=== PATIENT | male | born 1975 | race African-American/Black ===

== ENCOUNTER 2019-01-02 18:27 | Emergency (ER) | payer OTHER, MEDICARE ==
[~2019-01-02] VITALS: Ht 172.7 cm; Wt 84.8 kg
[2019-01-02 18:39] VITALS: BP 138/92
[2019-01-02] MEDS ORDERED: DIPHTH,PERTUSS(ACELL),TET TOX 0.5 ML DISP.SYRIN. VAX IM ONE (19:00)
--- NOTE | 2019-01-02 19:04 | PHYS DOC ---
Past History Past Medical History: Other Past Surgical History: Knee Replacement, Other Alcohol Use: None Drug Use: Marijuana Adult General Chief Complaint Chief Complaint: LACERATION/AVULSION [facility] HPI 43-year-old male presents with right third digit laceration. 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 He was cutting a bagel when the knife slipped and lacerated the posterior part of his third digit over the middle phalanx patient had immediate bleeding. He applied direct pressure and realize it likely needed stitches. He denies any other injuries. His tetanus is out of date. Review of Systems Review of Systems Constitutional: Denies fever or chills [] Eyes: Denies change in visual acuity, redness, or eye pain [] HENT: Denies nasal congestion or sore throat [] Respiratory: Denies cough or shortness of breath [] Cardiovascular: No additional information not addressed in HPI [] GI: Denies abdominal pain, nausea, vomiting, bloody stools or diarrhea [] : Denies dysuria or hematuria [] Musculoskeletal: Denies back pain or joint pain [] Integument: Laceration[] Neurologic: Denies headache, focal weakness or sensory changes [] Endocrine: Denies polyuria or polydipsia [] All other systems were reviewed and found to be within normal limits, except as documented in this note. Allergies Allergies Allergies Coded Allergies Type Severity Reaction Last Updated Verified Iodinated Contrast- Oral and IV Dye Allergy Unknown 01/02/19 Yes iodine Allergy Unknown 01/02/19 Yes Physical Exam Physical Exam Constitutional: Well developed, well nourished, no acute distress, non-toxic appearance. [] HENT: Normocephalic, atraumatic, bilateral external ears normal, oropharynx moist, no oral exudates, nose normal. [] Eyes: PERRLA, EOMI, conjunctiva normal, no discharge. [] Neck: Normal range of motion, no tenderness, supple, no stridor. [] Cardiovascular:Heart rate regular rhythm, no murmur [] Lungs & Thorax: Bilateral breath sounds clear to auscultation [] Abdomen: Bowel sounds normal, soft, no tenderness, no masses, no pulsatile masses. [] Skin: 2.5 cm linear laceration of posterior aspect, middle phalanx, right third digit[] Back: No tenderness, no CVA tenderness. [] Extremities: No tenderness, no cyanosis, no clubbing, ROM intact, no edema. [] Neurologic: Alert and oriented X 3, normal motor function, normal sensory function, no focal deficits noted. [] Psychologic: Affect normal, judgement normal, mood normal. [] Current Patient Data Vital Signs Vital Signs Date Time Temp Pulse Resp B/P (MAP) Pulse Ox O2 Delivery O2 Flow Rate FiO2 01/02/19 18:39 98.4 75 16 97 Room Air EKG EKG [] Radiology/Procedures Radiology/Procedures [] Course & Med Decision Making Course & Med Decision Making Pertinent Labs and Imaging studies reviewed. (See chart for details) I was able to suture the patient's laceration. See note below for details. We did give him his Tdap the ED. This was a clean wound and it was irrigated within 30 minutes. No antibiotics are indicated at this time. The patient is stable for discharge. [] Dragon Disclaimer Dragon Disclaimer This electronic medical record was generated, in whole or in part, using a voice recognition dictation system. Laceration Repair Lac Repair Indication: 2.5 cm linear laceration of the posterior aspect of the third digit of the right hand Procedure: Verbal consent was obtained from the patient for suture repair of his laceration. A finger tourniquet was applied. Wound was thoroughly irrigated with normal saline under pressure. There were no foreign bodies found. I anesthetized the wound with 1% lidocaine without epinephrine. A total of 3 mL was used. Good anesthesia was achieved, I repaired the laceration with 5 4-0 Ethilon sutures in interrupted fashion. There was good skin approximation. Bleeding was controlled. I removed the finger tourniquet. A clean dressing was applied as well as a splint to keep the finger straight for 2 days. Total repaired wound length: 2.5 cm Other Items: None The patient tolerated the procedure well. Complications: None Departure Departure: Impression: Primary Impression: Laceration of right middle finger Disposition: 01 HOME, SELF-CARE Condition: IMPROVED Referrals: PCP,NO (PCP) Patient Instructions: Laceration Care, Adult, [id number] Problem Qualifiers Primary Impression: Laceration of right middle finger Encounter type: initial encounter Damage to nail status: without damage Foreign body presence: without foreign body Qualified Codes: S61.212A - Laceration without foreign body of right middle finger without damage to nail, initial encounter IFTIKHAR PADRON DO Jan 02, 2019 19:04
== END 2019-01-02 19:16 | disposition home or self-care (01) ==
LOC: ER 18:27
DX: S61.212A Laceration without foreign body of right middle finger without damage to nail, initial encounter (principal); Z91.041 Radiographic dye allergy status; Z88.8 Allergy status to other drugs, medicaments and biological substances; W26.0XXA Contact with knife, initial encounter; Y93.G3 Activity, cooking and baking; Y92.511 Restaurant or cafe as the place of occurrence of the external cause; Y99.8 Other external cause status
CPT/HCPCS: 12001; 90471; 90715; 99283-25

== ENCOUNTER 2019-01-18 11:45 | Emergency (ER) | payer OTHER, MEDICARE ==
[~2019-01-18] VITALS: Ht 172.7 cm; Wt 84.8 kg
[2019-01-18] MEDS ORDERED: LIDOCAINE/EPI/TETRACAINE TOPICAL GEL 3 ML. TP ONE (12:15)
--- NOTE | 2019-01-18 12:15 | PHYS DOC ---
Past History Past Medical History: Other Past Surgical History: Knee Replacement, Other Smoking: Cigarettes Alcohol Use: None Drug Use: Marijuana Adult General Chief Complaint Chief Complaint: SUTURE/STAPLE REMOVAL HPI HPI Patient is a 43-year-old male presents for suture removal of his right third finger. Sutures were placed approximately 16 days ago. He has continued pain and swelling. No purulent drainage. No new weakness or numbness. No increasing redness. It is uncomfortable. Touch makes the discomfort worse. He has taken no medicine. He does smoke. 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.[] Review of Systems Review of Systems Constitutional: Denies fever or chills [] Eyes: Denies change in visual acuity, redness, or eye pain [] HENT: Denies nasal congestion or sore throat [] Respiratory: Denies cough or shortness of breath [] Cardiovascular: Chest pain or palpitations[] GI: Denies abdominal pain, nausea, vomiting, bloody stools or diarrhea [] : Denies dysuria or hematuria [] Musculoskeletal: Denies back pain, see history of present illness[] Integument: Denies rash or skin lesions [] Neurologic: Denies headache, focal weakness or sensory changes [] Endocrine: Denies polyuria or polydipsia [] All other systems were reviewed and found to be within normal limits, except as documented in this note. Current Medications Current Medications Current Medications Medications (Trade) Dose Ordered Sig/[facility] Start Time Stop Time Status Last Admin Dose Admin Lidocaine/ Epinephrine (Let Topical) 3 ml 1X ONCE 01/18/19 12:15 01/18/19 12:16 Allergies Allergies Allergies Coded Allergies Type Severity Reaction Last Updated Verified Iodinated Contrast- Oral and IV Dye Allergy Unknown 01/02/19 Yes iodine Allergy Unknown 01/02/19 Yes Physical Exam Physical Exam Constitutional: Well developed, well nourished, no acute distress, non-toxic appearance. [] HENT: Normocephalic, atraumatic, bilateral external ears normal, oropharynx moist, no oral exudates, nose normal. [] Eyes: PERRLA, EOMI, conjunctiva normal, no discharge. [] Neck: Normal range of motion, no tenderness, supple, no stridor. [] Cardiovascular:Heart rate regular rhythm, no murmur [] Lungs & Thorax: Bilateral breath sounds clear to auscultation [] Abdomen: Not examined. [] Skin: Warm, dry, no erythema, no rash. [] Back: No tenderness, no CVA tenderness. [] Extremities: Right dorsal third finger incision appears to be clean, dry, and intact. There is swelling on the dorsal aspect of the finger around the incision line. Sutures are intact. FDS, FDP, and extensor mechanisms are all intact. Patient is distally neurovascularly intact. The other 3 extremities show: No tenderness, no cyanosis, no clubbing, ROM intact, no edema. [] Neurologic: Alert and oriented X 3, normal motor function, normal sensory function, no focal deficits noted. [] Psychologic: Affect normal, judgement normal, mood normal. [] EKG EKG [] Radiology/Procedures Radiology/Procedures [] Course & Med Decision Making Course & Med Decision Making Pertinent Labs and Imaging studies reviewed. (See chart for details) ED course: Patient arrived, was placed in bed, in tolerated exam well. Patient had some significant tenderness with suture removal so some topical anesthetic was applied to assist with this process. Sutures were removed. He was discharged in improved condition with all questions answered. Medical decision making: There does not appear to be a significant wound infection. Will have patient follow-up with his primary care team for a wound check in 2 days. [id number] pain medicine can be taken as needed, as directed on the packaging.[] Dragon Disclaimer Dragon Disclaimer This electronic medical record was generated, in whole or in part, using a voice recognition dictation system. Departure Departure: Impression: Primary Impression: Visit for suture removal Disposition: HOME, SELF-CARE Condition: IMPROVED Referrals: PCP,MIN (PCP) Patient Instructions: Suture Removal Additional Instructions: Follow-up with your regular doctor in 2 days for a wound check. If you do not have regular doctor a list of local clinics will be provided for you. Return to the ER if there is purulent drainage, or any other concerns. ERICH ESCOBEDO DO Jan 18, 2019 12:15
== END 2019-01-18 12:22 | disposition home or self-care (01) ==
LOC: ER 11:45
DX: S61.212D Laceration without foreign body of right middle finger without damage to nail, subsequent encounter (principal); F17.210 Nicotine dependence, cigarettes, uncomplicated; Z91.041 Radiographic dye allergy status; Z88.8 Allergy status to other drugs, medicaments and biological substances; X58.XXXD Exposure to other specified factors, subsequent encounter
CPT/HCPCS: 99281

== ENCOUNTER 2019-07-08 09:32 | Emergency (ER) | payer MEDICARE, OTHER ==
[~2019-07-08] VITALS: Ht 175.3 cm; Wt 122.5 kg
--- NOTE | 2019-07-08 09:54 | RAD ---
CHEST PA LATERAL Clinical indications: Chest pain. COMPARISON: None available. Findings: No acute lung infiltrate or pleural effusion or pulmonary edema or lung mass or pneumothorax is seen. The heart size, pulmonary vasculature, mediastinum and both dhruv are unremarkable. The osseous structures appear intact. Impression: No acute radiographic abnormality is seen. Electronically signed by: Christo Betancourt MD (07/08/2019 9:50 AM) [id number]
--- NOTE | 2019-07-08 09:57 | PHYS DOC ---
Past History Past Medical History: Seizure Past Surgical History: Other Additional Past Surgical Histo: KNEE SURGERY Smoking: Cigarettes Alcohol Use: None Drug Use: Marijuana Adult General Chief Complaint Chief Complaint: CHEST WALL PAIN HPI HPI 44-year-old male presents with chest pain. He woke up feeling fine and then around [address] to work started of central chest pressure. He describes it as an intense heaviness. It has waxed and waned. At its worse it was 8 out of 10 and he was diaphoretic. It is currently 2 out of 10. It does like it's difficult to take a deep breath. He had some mild nausea on his way to the hospital. No vomiting. He has not been feeling ill in any other way prior to this. He does not have any cardiac history. He is a daily smoker for over 20 years. He denies fever or chills. Review of Systems Review of Systems Constitutional: Denies fever or chills [] Eyes: Denies change in visual acuity, redness, or eye pain [] HENT: Denies nasal congestion or sore throat [] Respiratory: Mild shortness of breath [] Cardiovascular: No additional information not addressed in HPI [] GI: Denies abdominal pain, nausea, vomiting, bloody stools or diarrhea [] : Denies dysuria or hematuria [] Musculoskeletal: Denies back pain or joint pain [] Integument: Denies rash or skin lesions [] Neurologic: Denies headache, focal weakness or sensory changes [] Endocrine: Denies polyuria or polydipsia [] All other systems were reviewed and found to be within normal limits, except as documented in this note. Allergies Allergies Allergies Coded Allergies Type Severity Reaction Last Updated Verified Iodinated Contrast Media Allergy Unknown 01/02/19 Yes iodine Allergy Unknown 01/02/19 Yes Physical Exam Physical Exam Constitutional: Well developed, obese, well nourished, no acute distress, non- toxic appearance. [] HENT: Normocephalic, atraumatic, bilateral external ears normal, oropharynx moist, no oral exudates, nose normal. [] Eyes: PERRLA, EOMI, conjunctiva normal, no discharge. [] Neck: Normal range of motion, no tenderness, supple, no stridor. [] Cardiovascular:Heart rate regular rhythm, no murmur [] Lungs & Thorax: Bilateral breath sounds clear to auscultation [] Abdomen: Bowel sounds normal, soft, no tenderness, no masses, no pulsatile masses. [] Skin: Warm, dry, no erythema, no rash. [] Back: No tenderness, no CVA tenderness. [] Extremities: No tenderness, no cyanosis, no clubbing, ROM intact, no edema. [] Neurologic: Alert and oriented X 3, normal motor function, normal sensory function, no focal deficits noted. [] Psychologic: Affect normal, judgement normal, mood normal. [] Current Patient Data Vital Signs Vital Signs Date Time Temp Pulse Resp B/P (MAP) Pulse Ox O2 Delivery O2 Flow Rate FiO2 07/08/19 09:39 97.0 77 18 96 Room Air EKG EKG Sinus rhythm, rate 67, normal axis, no ST elevations or depressions.[] Radiology/Procedures Radiology/Procedures [] Impressions: CHEST PA LATERAL Clinical indications: Chest pain. COMPARISON: None available. Findings: No acute lung infiltrate or pleural effusion or pulmonary edema or lung mass or pneumothorax is seen. The heart size, pulmonary vasculature, mediastinum and both dhruv are unremarkable. The osseous structures appear intact. Impression: No acute radiographic abnormality is seen. Electronically signed by: Rafael Betancourt MD (07/08/2019 9:50 AM) [id number] DICTATED AND SIGNED BY: RAFAEL BETANCOURT MD DATE: 07/08/19 0950 CC: IFTIKHAR PADRON DO; PCP,NO ~ Course & Med Decision Making Course & Med Decision Making Pertinent Labs and Imaging studies reviewed. (See chart for details) The patient's labs are unremarkable. His EKG is unremarkable. His chest x-rays negative for acute findings. His troponin is negative. His heart rates at 2 based on his obesity and smoking. I have discussed these results with the patient. Stable for discharge at this time. We'll return to the emergency room if this pain comes back, worsens, or he develops any other concerning symptoms. [] Dragon Disclaimer Dragon Disclaimer This electronic medical record was generated, in whole or in part, using a voice recognition dictation system. The HEART Score for CP Pts HEART Score for Chest Pain: HEART Score for Chest Pain Response (Comments) Value History Moderately Suspicious 1 ECG Normal 0 Age < 45 0 Risk Factors 1 or 2 Risk Factors 1 Troponin < Normal Limit 0 Total 2 Risk Factors: Risk Factors: DM, Current or recent (<one month) smoker, HTN, HLP, family history of CAD, obesity. Risk Scores: Score 0 - 3: 2.5% MACE over next 6 weeks - Discharge Home Score 4 - 6: 20.3% MACE over next 6 weeks - Admit for Clinical Observation Score 7 - 10: 72.7% MACE over next 6 weeks - Early Invasive Strategies Departure Departure: Impression: Primary Impression: Chest pain Disposition: HOME, SELF-CARE Condition: STABLE Referrals: PCP,NO (PCP) Patient Instructions: Chest Pain (Nonspecific), [id number] Problem Qualifiers Primary Impression: Chest pain Chest pain type: unspecified Qualified Codes: R07.9 - Chest pain, unspecified IFTIKHAR PADRON DO Jul 08, 2019 09:57
[2019-07-08] MEDS ORDERED: ASPIRIN 81 MG TAB.CHEW PO ONE (10:00)
[2019-07-08 10:03] LABS: BASO # 0.1 x10^3/uL (0.0-0.2); BASO % 1 % (0-3); EOS # 0.3 x10^3/uL (0.0-0.7); EOS % 4 % (0-3); HEMATOCRIT 46.1 % (39.0-53.0); HEMOGLOBIN 15.4 g/dL (13.0-17.5); LYMPH # 1.7 x10^3/uL (1.0-4.8); LYMPH % 22 % (24-48); MEAN CORPUSCULAR HEMOGLOBIN 30 pg (25-35); MEAN CORPUSCULAR HGB CONC 34 g/dL (31-37); MEAN CORPUSCULAR VOLUME 90 fL (79-100); MONO # 0.7 x10^3/uL (0.0-1.1); MONO % 9 % (0-9); NEUT # 4.8 x10^3uL (1.8-7.7); NEUT % 63 % (31-73); PLATELET COUNT 255 x10^3/uL (140-400); RED BLOOD COUNT 5.12 x10^6/uL (4.30-5.70); WHITE BLOOD COUNT 7.6 x10^3/uL (4.0-11.0)
[2019-07-08 10:13] LABS: CALCIUM 8.8 mg/dL (8.5-10.1); GFR 98.7; POTASSIUM 3.9 mmol/L (3.5-5.1)
[2019-07-08 10:18] LABS: ALBUMIN 3.5 g/dL (3.4-5.0); ALBUMIN/GLOBULIN RATIO 0.9 (1.0-1.7); TOTAL BILIRUBIN 0.4 mg/dL (0.2-1.0); TOTAL PROTEIN 7.5 g/dL (6.4-8.2)
[2019-07-08 10:52] VITALS: BP 112/61
--- NOTE | 2019-07-08 13:07 | EKG ---
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
== END 2019-07-08 10:53 | disposition home or self-care (01) ==
LOC: ER 09:32
DX: R07.89 Other chest pain (principal); F17.210 Nicotine dependence, cigarettes, uncomplicated; Z91.041 Radiographic dye allergy status; Z88.8 Allergy status to other drugs, medicaments and biological substances
CPT/HCPCS: 36415; 71046; 80053; 84484; 85025; 93005; 99285

== ENCOUNTER 2019-09-19 18:58 | Emergency (ER) | payer MEDICARE ==
[~2019-09-19] VITALS: Ht 185.4 cm; Wt 110.0 kg
--- NOTE | 2019-09-19 19:01 | PHYS DOC ---
Past History Past Medical History: Seizure Past Surgical History: Other Additional Past Surgical Histo: KNEE SURGERY Smoking: Cigarettes Alcohol Use: None Drug Use: Marijuana Adult General Chief Complaint Chief Complaint: ".. I was moving a washing machine.. and it slipped... got this cut to my upper arm. HPI HPI Patient is a 44 year old male who presents with above hx and complaints of 4cm arm laceration Lt. upper arm. Distal neurovascular intact and equal to Rt arm. Patient is up-to-date with tetanus as of last year. No history of recent travel outside of cancer area. No history immunosuppression. 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 Patient normally healthy. Patient does have a history of keloid formation with his lacerations. Patient is left-hand dominant.. Review of Systems Review of Systems Constitutional: Denies fever or chills [] Eyes: Denies change in visual acuity, redness, or eye pain [] HENT: Denies nasal congestion or sore throat [] Respiratory: Denies cough or shortness of breath [] Cardiovascular: No additional information not addressed in HPI [] GI: Denies abdominal pain, nausea, vomiting, bloody stools or diarrhea [] : Denies dysuria or hematuria [] Musculoskeletal: Denies back pain or joint pain [] Integument: Denies rash or skin lesions [] Complaints of Lt upper arm laceration. Neurologic: Denies headache, focal weakness or sensory changes [] Endocrine: Denies polyuria or polydipsia [] All other systems were reviewed and found to be within normal limits, except as documented in this note. Family History Family History Noncontributory Current Medications Current Medications See nursing for home meds Allergies Allergies Allergies Coded Allergies Type Severity Reaction Last Updated Verified Iodinated Contrast Media Allergy Unknown 01/02/19 Yes iodine Allergy Unknown 01/02/19 Yes Physical Exam Physical Exam Constitutional: Moderate acute distress, non-toxic appearance. [] HENT: Normocephalic, atraumatic, bilateral external ears normal, oropharynx moist, no oral exudates, nose normal. [] Eyes: PERRLA, EOMI, conjunctiva normal, no discharge. [] Neck: Normal range of motion, no tenderness, supple, no stridor. [] Cardiovascular:Heart rate regular rhythm, no murmur [] Lungs & Thorax: Bilateral breath sounds equal apex with scattered wheezes on auscultation [] Abdomen: Bowel sounds normal, soft, no tenderness, no masses, no pulsatile nathaniel s. Obese Skin: Warm, dry, no erythema, no rash. Laceration 4 cm left upper arm. Does have multiple areas of keloid formation on his body Back: No tenderness, no CVA tenderness. [] Extremities: No tenderness, no cyanosis, no clubbing, ROM intact, no edema. [] Neurologic: Alert and oriented X 3, normal motor function, normal sensory function, no focal deficits noted. []DTRs are +2 at brachial. 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 Left Hand dominant Psychologic: Affect anxious, judgement normal, mood normal. [] EKG EKG [] Radiology/Procedures Radiology/Procedures [] Course & Med Decision Making Course & Med Decision Making Pertinent Labs and Imaging studies reviewed. (See chart for details) Procedure note- 4 cm laceration repair- laceration cleaned with soap and water. Laceration irrigated with normal saline. Patient received 2% lidocaine with epinephrine injection along wound edge. Irrigated laceration normal saline in range of motion. Closed laceration with 8 alf. A plication Bactracin ointment and dressing. Patient to keep area clean and dry. Keep covered wet work. Have the laf removed in 10 days. Monitor for infection. Return if any concerns. Follow-up primary care. Impression: 1. Laceration to Lt upper arm - 4 cm [] Dragon Disclaimer Dragon Disclaimer This electronic medical record was generated, in whole or in part, using a voice recognition dictation system. Departure Departure: Disposition: 01 HOME/RESIDENCE PRIOR TO ADM Condition: STABLE Referrals: PCP,NO (PCP) Dragon Disclaimer This chart was dictated in whole or in part using Voice Recognition software in a busy, high-work load, and often noisy Emergency Department environment. It may contain unintended and wholly unrecognized errors or omissions. Dragon Disclaimer This chart was dictated in whole or in part using Voice Recognition software in a busy, high-work load, and often noisy Emergency Department environment. It may contain unintended and wholly unrecognized errors or omissions. VALERIE GARCIA MD Sep 19, 2019 19:03
[2019-09-19 19:09] VITALS: BP 132/86
[2019-09-19] MEDS ORDERED: ACETAMINOPHEN 500 MG TABLET PO ONE (19:30)
[2019-09-19] MEDS ORDERED: LIDOCAINE 2%/EPI 1:100,000 20 ML VIAL. IJ ONE (19:30)
== END 2019-09-19 19:40 | disposition home or self-care (01) ==
LOC: ER 18:58
DX: S41.112A Laceration without foreign body of left upper arm, initial encounter (principal); F17.210 Nicotine dependence, cigarettes, uncomplicated; Z91.041 Radiographic dye allergy status; Z88.8 Allergy status to other drugs, medicaments and biological substances; W31.89XA Contact with other specified machinery, initial encounter; Y93.89 Activity, other specified; Y92.89 Other specified places as the place of occurrence of the external cause; Y99.8 Other external cause status
CPT/HCPCS: 12002; 99282

== ENCOUNTER 2019-10-04 10:57 | Emergency (ER) | payer MEDICARE ==
[~2019-10-04] VITALS: Ht 185.4 cm; Wt 124.0 kg
--- NOTE | 2019-10-04 11:49 | PHYS DOC ---
Past History Past Medical History: No Pertinent History Past Surgical History: No Surgical History Additional Past Surgical Histo: KNEE SURGERY Smoking: Cigarettes Alcohol Use: Rarely Drug Use: Marijuana General Adult EDM: Chief Complaint: SUTURE/STAPLE REMOVAL HPI: HPI: 44-year-old male presents for staple removal from his left upper arm. The patient had a cut that required alf. He is now ready to have them removed. He denies fever chills. He has had no complications. Review of Systems: Review of Systems: Constitutional: Denies fever or chills Eyes: Denies change in visual acuity HENT: Denies nasal congestion or sore throat Respiratory: Denies cough or shortness of breath Cardiovascular: Denies chest pain or edema GI: Denies abdominal pain, nausea, vomiting, bloody stools or diarrhea : Denies dysuria Musculoskeletal: Denies back pain or joint pain Integument: Stapled laceration left upper arm Neurologic: Denies headache, focal weakness or sensory changes Endocrine: Denies polyuria or polydipsia Lymphatic: Denies swollen glands Psychiatric: Denies depression or anxiety Heart Score: Risk Factors: Risk Factors: DM, Current or recent (<one month) smoker, HTN, HLP, family hist ory of CAD, obesity. Risk Scores: Score 0 - 3: 2.5% MACE over next 6 weeks - Discharge Home Score 4 - 6: 20.3% MACE over next 6 weeks - Admit for Clinical Observation Score 7 - 10: 72.7% MACE over next 6 weeks - Early Invasive Strategies Allergies: Allergies: Allergies Coded Allergies Type Severity Reaction Last Updated Verified Iodinated Contrast Media Allergy Unknown 01/02/19 Yes iodine Allergy Unknown 01/02/19 Yes Physical Exam: PE: Constitutional: Well developed, well nourished, no acute distress, non-toxic appearance. [] HENT: Normocephalic, atraumatic, bilateral external ears normal, oropharynx moist, no oral exudates, nose normal. [] Eyes: PERRLA, EOMI, conjunctiva normal, no discharge. [] Neck: Normal range of motion, no tenderness, supple, no stridor. [] Cardiovascular:Heart rate regular rhythm, no murmur [] Lungs & Thorax: Bilateral breath sounds clear to auscultation [] Abdomen: Bowel sounds normal, soft, no tenderness, no masses, no pulsatile masses. [] Skin: 7 alf in the left upper arm, well-healed, no signs of infection [] Back: No tenderness, no CVA tenderness. [] Extremities: No tenderness, no cyanosis, no clubbing, ROM intact, no edema. [] Neurologic: Alert and oriented X 3, normal motor function, normal sensory function, no focal deficits noted. [] Psychologic: Affect normal, judgement normal, mood normal. [] Current Patient Data: Vital Signs: Vital Signs Date Time Temp Pulse Resp B/P (MAP) Pulse Ox O2 Delivery O2 Flow Rate FiO2 10/04/19 11:19 98.8 60 16 117/68 (84) 97 Room Air EKG: EKG: [] Radiology/Procedures: Radiology/Procedures: [] Course & Med Decision Making: Course & Med Decision Making Pertinent Labs and Imaging studies reviewed. (See chart for details) The patient had 7 alf removed without complication. He is stable for discharge at this time. [] Dragon Disclaimer: Dragon Disclaimer: This electronic medical record was generated, in whole or in part, using a voice recognition dictation system. Departure Departure: Impression: Primary Impression: Encounter for staple removal Disposition: HOME, SELF-CARE Condition: IMPROVED Referrals: PCPMIN (PCP) Patient Instructions: Staple Removal, Care After IFTIKHAR PADRON DO Oct 04, 2019 11:49
[2019-10-04 11:53] VITALS: BP 117/68
== END 2019-10-04 11:50 | disposition home or self-care (01) ==
LOC: ER 10:57
DX: S41.112D Laceration without foreign body of left upper arm, subsequent encounter (principal); F17.210 Nicotine dependence, cigarettes, uncomplicated; Z91.041 Radiographic dye allergy status; Z88.8 Allergy status to other drugs, medicaments and biological substances; X58.XXXD Exposure to other specified factors, subsequent encounter
CPT/HCPCS: 99281

== ENCOUNTER 2020-10-05 23:17 | Emergency (ER) | payer OTHER, MEDICARE ==
[~2020-10-05] VITALS: Ht 185.4 cm; Wt 124.0 kg
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
[2020-10-06] MEDS ORDERED: CYCLOBENZAPRINE 10 MG TABLET. PO ONE
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
[2020-10-06] MEDS ORDERED: CYCL-331 PO ×2 (00:32→00:53)
[2020-10-06] MEDS ORDERED: LIDO700A21 TP ×2 (00:32→00:53)
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
[2020-10-06 00:55] VITALS: BP 140/76
== END 2020-10-06 00:59 | disposition home or self-care (01) ==
LOC: ER 23:17
DX: S16.1XXA Strain of muscle, fascia and tendon at neck level, initial encounter (principal); S39.012A Strain of muscle, fascia and tendon of lower back, initial encounter; M51.36 Other intervertebral disc degeneration, lumbar region; M47.816 Spondylosis without myelopathy or radiculopathy, lumbar region; F17.210 Nicotine dependence, cigarettes, uncomplicated; V89.2XXA Person injured in unspecified motor-vehicle accident, traffic, initial encounter; Y92.488 Other paved roadways as the place of occurrence of the external cause; Y93.89 Activity, other specified; Y99.8 Other external cause status
CPT/HCPCS: 70450; 72125; 72131; 99285-25

== ENCOUNTER 2020-10-10 18:00 | Emergency (ER) | payer OTHER, MEDICARE ==
[~2020-10-10] VITALS: Ht 185.4 cm; Wt 124.0 kg
[~2020-10-10 18:00] MED LIST: CYCL-331 PO; LIDO700A21 TP
[2020-10-10 18:11] VITALS: BP 103/77
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
[2020-10-10] MEDS ORDERED: HYDR-2759 PO (19:20)
== END 2020-10-10 19:27 | disposition home or self-care (01) ==
LOC: ER 18:00
DX: S22.31XA Fracture of one rib, right side, initial encounter for closed fracture (principal); F17.210 Nicotine dependence, cigarettes, uncomplicated; Z91.041 Radiographic dye allergy status; Z88.8 Allergy status to other drugs, medicaments and biological substances; V89.2XXA Person injured in unspecified motor-vehicle accident, traffic, initial encounter; Y93.89 Activity, other specified; Y92.89 Other specified places as the place of occurrence of the external cause; Y99.8 Other external cause status
CPT/HCPCS: 71101; 99283

== ENCOUNTER 2021-05-09 20:44 | Emergency (ER) | payer MEDICARE, OTHER ==
[~2021-05-09] VITALS: Ht 185.4 cm; Wt 124.0 kg
[~2021-05-09 20:44] MED LIST changes: -CYCL-331 PO; +CYCL10TA19 PO; +HYDR-2759 PO
[2021-05-09 20:57] VITALS: BP 132/74
--- NOTE | 2021-05-09 21:09 | PHYS DOC ---
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 Denies any injuries. Denies any numbness or tingling to the left upper extremity. (KAREN SOMERS APRN) Review of Systems Review of Systems Constitutional: Denies fever or chills [][] Musculoskeletal: Reports left elbow pain Integument: Denies rash or skin lesions [] Neurologic: Denies headache, focal weakness or sensory changes [] All other systems were reviewed and found to be within normal limits, except as documented in this note. (KAREN SOMERS APRN) Allergies Allergies Allergies Coded Allergies Type Severity Reaction Last Updated Verified Iodinated Contrast Media Allergy Unknown 01/02/19 Yes iodine Allergy Unknown 01/02/19 Yes (KAREN SOMERS APRN) Physical Exam Physical Exam Constitutional: Well developed, well nourished, no acute distress, non-toxic appearance. [] Skin: Warm, dry, no erythema, no rash. [] Back: No tenderness, no CVA tenderness. [] Extremities: Left elbow with no obvious deformity, soft tissue swelling noted around the elbow. Full active as well as passive range of motion to the left elbow including flexion and extension, plantarflexion dorsiflexion of the left forearm. Full range of motion to the fingers, adequate radial, medial, ulnar sensation fingers. +2 pulse. Cap left fingers Neurologic: Alert and oriented X 3, normal motor function, normal sensory function, no focal deficits noted. [] Psychologic: Affect normal, judgement normal, mood normal. [] (KAREN SOMERS FERTILIZER SUPERVISOR) EKG EKG [] (KAREN SOMERS FERTILIZER SUPERVISOR) Radiology/Procedures Radiology/Procedures []PROCEDURE: ELBOW LEFT 3V Exam: Left elbow 3 views INDICATION: Pain for months TECHNIQUE: Frontal, lateral and oblique views of the left elbow Comparisons: None FINDINGS: Bone mineralization is normal. No acute or healed fractures. Soft tissues are unremarkable. Joint spaces are well-maintained IMPRESSION: Unremarkable radiographs of the left elbow Electronically signed by: Es Christian MD (05/09/2021 9:14 PM) [facility] DICTATED AND SIGNED BY: ES CHRISTIAN MD DATE: 05/09/212110 CC: EMERGENCY,DEPARTMENT; MASON CUELLO MD; KAREN SOMERS APRN ~MTH0 0 (KAREN SOMERS APRN) Heart Score C/O Chest Pain: N/A Risk Factors: Risk Factors: DM, Current or recent (<one month) smoker, HTN, HLP, family history of CAD, obesity. Risk Scores: Risk Factors: DM, Current or recent (<one month) smoker, HTN, HLP, family history of CAD, obesity. (KAREN SOMERS APRN) Course & Med Decision Making Course & Med Decision Making Pertinent Labs and Imaging studies reviewed. (See chart for details) This is a 46-year-old male patient presenting to the ED today complaining of left elbow pain that began in February which is over 2 months ago, no known injury. Left elbow x-rays interpreted by radiologist were negative for any acute findings, Cody bandage applied to the left elbow by the ED RN, neurovascular exam is normal, ice and elevation encouraged. Diclofenac for pain. Follow-up with Ortho in 1 week (KAREN SOMERS APRN) Course & Med Decision Making I was the Attending physician on the above date of service of this patient. This patient was evaluated, examined, treated, and dispositioned from the emergency department by the mid-level practitioner. Although I was working at the time , no assistance was requested. Electronically signed, Ravi Mcguire DO (RAVI MCGUIRE DO) Patrizia Disclaimer Dragon Disclaimer This electronic medical record was generated, in whole or in part, using a voice recognition dictation system. (KAREN SOMERS APRN) Departure Departure: Impression: Primary Impression: Left elbow pain Disposition: HOME / SELF CARE / HOMELESS Condition: STABLE Referrals: MASON CUELLO MD (PCP) VALERIE NICOLE MD follow up in one week Patient Instructions: Musculoskeletal Pain Additional Instructions: You were evaluated in the emergency room for left elbow pain, findings. Wear the Cody bandage provided please contact the provided orthopedic doctor in 1 week and set up a follow-up appointment. Try to ice and elevate the extremity. Scripts Methylprednisolone (MEDROL) 4 Mg Tab.ds.pk 1 PKG PO UD, #1 PKG Prov: KAREN SOMERS APRN 05/09/21 Diclofenac Potassium (DICLOFENAC POTASSIUM) 50 Mg Tablet 1 TAB PO BID, #14 TAB 1 Refill Prov: KAREN SOMERS APRN 05/09/21 KAREN SOMERS APRN May 09, 2021 21:09 RAVI MCGUIRE DO May 11, 2021 06:21
--- NOTE | 2021-05-09 21:16 | RAD ---
Exam: Left elbow 3 views INDICATION: Pain for months TECHNIQUE: Frontal, lateral and oblique views of the left elbow Comparisons: None FINDINGS: Bone mineralization is normal. No acute or healed fractures. Soft tissues are unremarkable. Joint spa noman are well-maintained IMPRESSION: Unremarkable radiographs of the left elbow Electronically signed by: Es Guerin MD (05/09/2021 9:14 PM) [facility]
[2021-05-09] MEDS ORDERED: DICL50TA2 PO (21:26)
[2021-05-09] MEDS ORDERED: METH4TAB2 PO (21:26)
== END 2021-05-09 21:29 | disposition home or self-care (01) ==
LOC: ER 20:44
DX: M25.522 Pain in left elbow (principal); M79.18 Myalgia, other site; F17.210 Nicotine dependence, cigarettes, uncomplicated; F12.10 Cannabis abuse, uncomplicated
CPT/HCPCS: 73080; 99283-25

== ENCOUNTER 2021-07-31 14:25 | Emergency (ER) | payer MEDICARE ==
[~2021-07-31] VITALS: Ht 185.4 cm; Wt 124.0 kg
[~2021-07-31 14:25] MED LIST changes: +DICL50TA2 PO; +METH4TAB2 PO
--- NOTE | 2021-07-31 14:48 | PHYS DOC ---
Past History Past Medical History: Seizure Past Surgical History: Other Additional Past Surgical Histo: left knee surgery Smoking: Cigarettes Alcohol Use: None Drug Use: Marijuana General Adult EDM: Chief Complaint: NAUSEA/VOMITING/DIARRHEA HPI: HPI: 46-year-old male presents with vomiting, nosebleed, fatigue, body aches. Patient started feeling this way little bit yesterday. It is much worse this morning. He is concerned that he is vomiting up blood. It was also coming out of his nose so he is not sure if he had a nosebleed. He has had recent exposure to COVID-19. He is not vaccinated against COVID-19. Review of Systems: Review of Systems: Constitutional: Denies fever or chills. Body aches, fatigue. Eyes: Denies change in visual acuity HENT: Denies nasal congestion or sore throat Respiratory: Denies cough or shortness of breath Cardiovascular: Denies chest pain or edema GI: Generalized abdominal pain, nausea, vomiting. : Denies dysuria Musculoskeletal: Denies back pain or joint pain Integument: Denies rash Neurologic: Denies headache, focal weakness or sensory changes Endocrine: Denies polyuria or polydipsia Lymphatic: Denies swollen glands Psychiatric: Denies depression or anxiety Current Medications: Current Meds: Current Medications Medications (Trade) Dose Ordered Sig/Nora Start Time Stop Time Status Last Admin Dose Admin Ondansetron HCl (Zofran) 4 mg 1X ONCE 07/31/21 14:45 07/31/21 14:46 UNV Sodium Chloride 1,000 ml @ 1,000 mls/hr 1X ONCE 07/31/21 14:45 07/31/21 15:44 UNV Allergies: Allergies: Allergies Coded Allergies Type Severity Reaction Last Updated Verified Iodinated Contrast Media Allergy Unknown 01/02/19 Yes iodine Allergy Unknown 01/02/19 Yes Physical Exam: PE: Constitutional: Well developed, well nourished, no acute distress, non-toxic appearance. [] HENT: Normocephalic, atraumatic, bilateral external ears normal, oropharynx moist, no oral exudates, nose with evidence of recent bleeding on the left. [] Eyes: PERRLA, EOMI, conjunctiva normal, no discharge. [] Neck: Normal range of motion, no tenderness, supple, no stridor. [] Cardiovascular: Heart rate regular rhythm, no murmur [] Lungs & Thorax: Bilateral breath sounds very mild end expiratory wheeze. [] Abdomen: Bowel sounds normal, soft, no tenderness, no masses, no pulsatile masses. [] Skin: Warm, dry, no erythema, no rash. [] Back: No tenderness, no CVA tenderness. [] Extremities: No tenderness, no cyanosis, no clubbing, ROM intact, no edema. [] Neurologic: Alert and oriented X 3, normal motor function, normal sensory function, no focal deficits noted. [] Psychologic: Affect normal, judgement normal, mood normal. [] Current Patient Data: Vital Signs: Vital Signs Date Time Temp Pulse Resp B/P (MAP) Pulse Ox O2 Delivery O2 Flow Rate FiO2 07/31/21 14:36 98.8 84 20 133/70 (91) 96 Room Air EKG: EKG: [] Radiology/Procedures: Radiology/Procedures: [] Impressions: EXAMINATION: XR CHEST 1V CLINICAL HISTORY: Shortness of breath, wheezing. EXAM DATE/TIME: 07/31/2021 2:47 PM COMPARISON: 07/17/2019 FINDINGS: Lines, Tubes, and Devices: None. Cardiomediastinal Silhouette: Normal heart size. Aortic atherosclerotic calcification. Lungs and Pleura: Patchy opacities in the bilateral lower lung zones. No evidence of pleural effusion or pneumothorax. Bones and Soft Tissues: Degenerative changes in the thoracic spine. IMPRESSION: Patchy airspace disease in the bilateral lower lung zones. Electronically signed by: Patrick Hinson DO (07/31/2021 2:56 PM) [facility] DICTATED AND SIGNED BY: PATRICK HINSON DO DATE: 07/31/21 1455 CC: IFTIKHAR PADRON DO; MASON CUELLO MD ~MTH0 0 Heart Score: C/O Chest Pain: N/A Risk Factors: Risk Factors: DM, Current or recent (<one month) smoker, HTN, HLP, family history of CAD, obesity. Risk Scores: Score 0 - 3: 2.5% MACE over next 6 weeks - Discharge Home Score 4 - 6: 20.3% MACE over next 6 weeks - Admit for Clinical Observation Score 7 - 10: 72.7% MACE over next 6 weeks - Early Invasive Strategies Course & Med Decision Making: Course & Med Decision Making Pertinent Labs and Imaging studies reviewed. (See chart for details) The patient's chest x-ray shows bilateral lower lobe pneumonia. This is the likely of 19. I will treat him with a gram of Rocephin and azithromycin in the ED. I will discharge the patient on azithromycin. He is COVID-19 positive. This pneumonia is likely due to COVID-19. He does not meet admission criteria at this time. His oxygen levels above 92%. I have stressed to the patient that he could get worse and if his symptoms increase significantly he should return to the emergency room and may need to be admitted to the hospital. He is stable for discharge at this time. [] Dragon Disclaimer: Dragon Disclaimer: This electronic medical record was generated, in whole or in part, using a voice recognition dictation system. Departure Departure: Impression: Primary Impression: COVID-19 Additional Impression: Pneumonia of both lower lobes Qualified Codes: J18.9 - Pneumonia, unspecified organism Disposition: HOME / SELF CARE / HOMELESS Condition: STABLE Referrals: MASON CUELLO MD (PCP) Patient Instructions: Viral Syndrome Additional Instructions: You have been tested for or diagnosed with COVID-19. It is an infection caused b y a new type of coronavirus. COVID-19 will cause cold-like or mild flu symptoms in most. It can cause more severe symptoms like problems breathing in some. There is no treatment for COVID-19. The body will clear the infection over time. Self-care will help to ease discomfort. Steps to Take: Self-Care Rest as needed. Healthy habits may help you feel better. Steps include: Choose healthy foods including fruits and vegetables. Drink water throughout the day. Get plenty of sleep each night. If you smoke, try to quit. It may ease breathing. Avoid alcohol. Keep Others Healthy The virus can spread to others. Droplets are released every time you sneeze or cough. The droplets can get into the mouth, nose, or eyes of people near you and lead to infection. To lower the chances of spreading COVID-19 to others: Stay at home until your doctor has said it is safe to leave. If you tested p ositive this will mean staying isolated until both of the following are true: At least 7 days have passed since the start of illness. You are free of fever for at least 72 hours without the use of medicine. During this time: - Avoid public areas, events, or transportation. Do not return to work or school until your doctor has said it is safe to do so. - Call ahead if you need to go to a medical center. Let them know you may have COVID-19. It will help them guide you where to go. They may also ask you to wear a facemask when you come to the office. - If you call for emergency medical services, let them know you may have COVID- 19. While at home: - Try to avoid close contact with others. Stay about 6 feet away. - If possible, spend most of your time in a separate room from others. - Use a face mask if you will be in close contact with others such as sharing a room or vehicle. - Have someone wipe down common surfaces in the home. Use household fretted instruments inspector every day on areas like doorknobs, counters, or sinks. - Cough or sneeze into a tissue. Throw the tissue away right after use. If a tissue is not available, cough or sneeze into your elbow. - Wash your hands often. Wash them after sneezing or coughing. Use soap and water and wash for at least 20 seconds. Alcohol based hand boat cleaner can be used if soap and water is not available. - Do not prepare food for others. Avoid sharing personal items like forks, spoons, or toothbrushes. - Avoid close contact with pets while you are sick. There is no evidence of the virus passing to pets. This is a safety step until more is known about this virus. Isolation can be frustrating. Social interaction can help. Keep in touch with friends and family through phone and tech options. You can still interact with others in your home, just keep a safe distance of about 6 feet. Follow-up: Your doctors office will check in with you to see if there are any changes in your health. You may be asked to keep track of symptoms to share with them. They will also let you know when you are clear to be in public again. Problems to Look Out For: Contact your doctor if your recovery is not going as you expect. Get emergency care if you have problems such as: - Trouble breathing - Nonstop chest pain or pressure - Changes in awareness, confusion, or problems waking - Lips or face have bluish color - Worsening of symptoms If you think you have an emergency, call for emergency medical services right away. As taken from [facility] Azithromycin (AZITHROMYCIN TABLET) 250 Mg Tablet 250 MG PO DAILY for ANTI-BIOTIC for 4 Days, #4 TAB 0 Refills start 08/01/21 Prov: IFTIKHAR PADRON DO 07/31/21 IFTIKHAR PADRON DO Jul 31, 2021 14:48
--- NOTE | 2021-07-31 14:58 | RAD ---
EXAMINATION: XR CHEST 1V CLINICAL HISTORY: Shortness of breath, wheezing. EXAM DATE/TIME: 07/31/2021 2:47 PM COMPARISON: 07/17/2019 FINDINGS: Lines, Tubes, and Devices: None. Cardiomediastinal Silhouette: Normal heart size. Aortic atherosclerotic calcification. Lungs and Pleura: Patchy opacities in the bilateral lower lung zones. No evidence of pleural effusion or pneumothorax. Bones and Soft Tissues: Degenerative changes in the thoracic spine. IMPRESSION: Patchy airspace disease in the bilateral lower lung zones. Electronically signed by: Patrick Ram DO (07/31/2021 2:56 PM) [facility]
[2021-07-31] MEDS: IV NORMAL SALINE 1,000ML 1,000 ML IV ONE (15:23)
[2021-07-31] MEDS: ONDANSETRON PF 4 MG/2 ML VIAL. IVP ONE (15:23)
[2021-07-31 15:47] LABS: BASO # 0.1 x10^3/uL (0.0-0.2); BASO % 1 % (0-3); EOS # 0.2 x10^3/uL (0.0-0.7); EOS % 2 % (0-3); HEMATOCRIT 48.8 % (39.0-53.0); HEMOGLOBIN 16.5 g/dL (13.0-17.5); LYMPH # 0.4 x10^3/uL (1.0-4.8); LYMPH % 4 % (24-48); MEAN CORPUSCULAR HEMOGLOBIN 31 pg (25-35); MEAN CORPUSCULAR HGB CONC 34 g/dL (31-37); MEAN CORPUSCULAR VOLUME 92 fL (79-100); MONO # 1.3 x10^3/uL (0.0-1.1); MONO % 14 % (0-9); NEUT # 7.1 x10^3uL (1.8-7.7); NEUT % 79 % (31-73); PLATELET COUNT 273 x10^3/uL (140-400); RED BLOOD COUNT 5.29 x10^6/uL (4.30-5.70)
[2021-07-31 15:54] LABS: CALCIUM 9.2 mg/dL (8.5-10.1); CREATININE 1.3 mg/dL (0.7-1.3); GFR 72.2; POTASSIUM 4.4 mmol/L (3.5-5.1)
[2021-07-31 16:00] LABS: TOTAL BILIRUBIN 0.4 mg/dL (0.2-1.0)
[2021-07-31 16:01] LABS: INFLUENZA A PATIENT NEGATIVE (NEGATIVE); INFLUENZA B PATIENT NEGATIVE (NEGATIVE)
[2021-07-31 16:11] VITALS: BP 151/104
[2021-07-31] MEDS ORDERED: IV NORMAL SALINE 50ML 50 ML ONE ×2 (16:12→16:13)
[2021-07-31] MEDS ORDERED: cefTRIAXone SODIUM 1 GM VIAL ONE (16:12)
[2021-07-31] MEDS: AZITHROMYCIN 250 MG TABLET. PO ONE (16:18)
[2021-07-31] MEDS ORDERED: AZIT250T6 PO (16:21)
[2021-07-31] MEDS ORDERED: ONDA4TAB12 PO (16:23)
== END 2021-07-31 16:54 | disposition home or self-care (01) ==
LOC: ER 14:25
DX: U07.1 COVID-19 (principal); J18.1 Lobar pneumonia, unspecified organism; F17.210 Nicotine dependence, cigarettes, uncomplicated; Z88.8 Allergy status to other drugs, medicaments and biological substances; Z91.041 Radiographic dye allergy status
CPT/HCPCS: 36415; 71045; 80053; 85025; 87428; 96361; 96365; 96375; 99284; J0696; J2405; J7030